=== PATIENT | female | born 1990 | race Caucasian/White ===

== ENCOUNTER 2018-05-16 14:03 | Outpatient (CLI) | payer MEDICAID, OTHER | END 2018-05-16 17:35 | disposition home or self-care (01) | LOC: OBT 14:03 → L-D 14:03 → OBT 17:35 | DX: O36.8130 Decreased fetal movements, third trimester, not applicable or unspecified (principal); Z3A.36 36 weeks gestation of pregnancy | CPT/HCPCS: 76818 ==

== ENCOUNTER 2018-05-30 05:50 | Outpatient (CLI) | payer MEDICAID | END 2018-05-30 08:58 | disposition home or self-care (01) | LOC: OBT 05:50 → L-D 05:50 → OBT 08:58 | DX: O62.9 Abnormality of forces of labor, unspecified (principal); Z3A.39 39 weeks gestation of pregnancy | CPT/HCPCS: 76815 ==

== ENCOUNTER 2018-06-01 15:29 | Outpatient (CLI) | payer MEDICAID | END 2018-06-01 17:00 | disposition home or self-care (01) | LOC: OBT 15:29 → L-D 15:30 → OBT 17:00 | DX: O36.8130 Decreased fetal movements, third trimester, not applicable or unspecified (principal); Z3A.39 39 weeks gestation of pregnancy | CPT/HCPCS: 76818 ==

== ENCOUNTER 2018-06-02 19:08 | Inpatient (IN) | payer MEDICAID ==
[2018-06-02] MEDS ORDERED: LACTATED RINGER'S 1,000 ML IV (19:57)
[2018-06-02] MEDS ORDERED: IBUPROFEN 600 MG TAB PO (20:00)
[2018-06-02] MEDS ORDERED: OXYTOCIN 30 UNITS/LR 500 ML IV ×2 (20:00)
[2018-06-02] MEDS ORDERED: METHYLERGONOVINE 0.2 MG INJ IM (20:00)
[2018-06-02] MEDS ORDERED: LIDOCAINE 1% (MPF) 30 ML INJ INJ (20:00)
[2018-06-02] MEDS ORDERED: MISOPROSTOL 200 MCG TAB PR (20:00)
[2018-06-02] MEDS ORDERED: CARBOPROST 250 MCG INJ IM (20:00)
[2018-06-02 21:09] LABS: AMPHETAMINE/METHAMPHETAMINE Negative (NEGATIVE); BARBITURATES Negative (NEGATIVE); BENZODIAZEPINES Negative (NEGATIVE); CANNABINOIDS Negative (NEGATIVE); COCAINE Negative (NEGATIVE); OPIATES Negative (NEGATIVE)
[2018-06-02] MEDS: LACTATED RINGER'S 1,000 ML IV (21:34)
[2018-06-02] MEDS: AZITHROMYCIN 500MG/NS (PMX) 250 ML IVPB (21:44)
[2018-06-02 22:04] LABS: ADD MAN DIFF? NO
[2018-06-02 22:08] LABS: BASOPHILS % 0.3 % (0.0-2.0); EOSINOPHILS # 0.1 10^3/ul (0.0-0.5); EOSINOPHILS % 0.7 % (0.0-7.0); HEMATOCRIT 33.2 % (37.0-47.0); HEMOGLOBIN 10.3 g/dl (12.0-16.0); LYMPHOCYTES # 1.9 10^3/ul (0.8-2.9); LYMPHOCYTES % 15.5 % (15.0-51.0); MEAN CORPUSCULAR HEMOGLOBIN 24.1 pg (29.0-33.0); MEAN CORPUSCULAR VOLUME 77.8 fl (82.0-101.0); MONOCYTES % 8.4 % (0.0-11.0); NEUTROPHIL # 8.9 10^3/ul (1.6-7.5); NEUTROPHILS % 74.5 % (39.0-77.0); PLATELET COUNT 307 10^3/UL (140-415); RED BLOOD COUNT 4.27 10^6/ul (4.20-5.40); RED CELL DISTRIBUTION WIDTH 16.9 % (11.5-14.5)
[2018-06-02 22:08] LABS: WHITE BLOOD COUNT 11.9 10^3/ul (4.8-10.8)
[2018-06-02 22:29] LABS: INR 0.91; PARTIAL THROMBOPLASTIN TIME 24.7 Sec (23.0-35.0); PROTIME 12.4 Sec (11.9-14.9)
[2018-06-02 22:57] LABS: HEPATITIS B SURFACE ANTIGEN NEGATIVE (NEGATIVE)
[2018-06-03] MEDS: LACTATED RINGER'S 1,000 ML IV ×4 (04:19→21:20)
[2018-06-03] MEDS ORDERED: FENTAnyl 2MCG/ML-ROPIV 0.2% 100 ML (12:43)
[2018-06-03] MEDS ORDERED: NALOXONE (0.4 MG/ML) INJ IV (13:00)
[2018-06-03] MEDS: OXYTOCIN 30 UNITS/LR 500 ML IV ×2 (13:30→23:45)
[2018-06-03 14:39] LABS: RAPID PLASMA REAGIN NONREACTIVE (NR)
[2018-06-03] MEDS: AZITHROMYCIN 250 MG in SOD CHLORIDE 0.9% 250 ML IVPB (20:48)
[2018-06-03] MEDS: ONDANSETRON 4 MG INJ IV (21:05)
[2018-06-03] MEDS: FENTAnyl 2MCG/ML-ROPIV 0.2% 100 ML BAG EPI (21:19)
[2018-06-04] MEDS ORDERED: MAGNESIUM HYDROXIDE 30ML CUP PO
[2018-06-04] MEDS ORDERED: ACETAMINOPHEN 325 MG TAB PO ×2
[2018-06-04] MEDS ORDERED: SENNA/DOCUSATE NA (8.6MG/50MG) TAB PO
[2018-06-04] MEDS ORDERED: ONDANSETRON 4 MG INJ IV
[2018-06-04] MEDS ORDERED: LANOLIN HPA 1 PKT TOP
[2018-06-04] MEDS ORDERED: DIBUCAINE 1% 30 GM OINT TOP
[2018-06-04] MEDS: METHYLERGONOVINE 0.2 MG INJ IM ×2 (00:49→01:14)
[2018-06-04] MEDS: OXYTOCIN 30 UNITS/LR 500 ML IV ×2 (01:11→13:56)
[2018-06-04] MEDS: MISOPROSTOL 200 MCG TAB PR (01:44)
[2018-06-04] MEDS: CARBOPROST 250 MCG INJ IM (03:00)
[2018-06-04] MEDS: BUTORPHANOL 2 MG INJ IV (03:01)
[2018-06-04] MEDS: DIPHENOXYLATE/ATROPINE 5 ML CUP PO ×2 (03:41→09:00)
[2018-06-04 04:04] LABS: ADD MAN DIFF? NO
[2018-06-04 04:06] LABS: BASOPHIL # 0.1 10^3/ul (0.0-0.1); BASOPHILS % 0.3 % (0.0-2.0); EOSINOPHILS % 0.1 % (0.0-7.0); HEMATOCRIT 33.1 % (37.0-47.0); HEMOGLOBIN 10.3 g/dl (12.0-16.0); LYMPHOCYTES # 1.4 10^3/ul (0.8-2.9); LYMPHOCYTES % 8.1 % (15.0-51.0); MEAN CORPUSCULAR HEMOGLOBIN 24.3 pg (29.0-33.0); MEAN CORPUSCULAR HGB CONC 31.1 g/dl (32.0-37.0); MEAN CORPUSCULAR VOLUME 78.1 fl (82.0-101.0); MEAN PLATELET VOLUME 11.5 fl (7.4-10.4); MONOCYTE # 0.8 10^3/ul (0.3-0.9); MONOCYTES % 4.7 % (0.0-11.0); NEUTROPHIL # 14.4 10^3/ul (1.6-7.5); NEUTROPHILS % 86.3 % (39.0-77.0); PLATELET COUNT 287 10^3/UL (140-415); RED BLOOD COUNT 4.24 10^6/ul (4.20-5.40); RED CELL DISTRIBUTION WIDTH 16.6 % (11.5-14.5)
[2018-06-04 04:06] LABS: WHITE BLOOD COUNT 16.7 10^3/ul (4.8-10.8)
[2018-06-04] MEDS: LACTATED RINGER'S 1,000 ML IV* ×4 (06:07→23:57)
[2018-06-04] MEDS: CEFAZOLIN 2 GM/50 ML (PMX) 50 ML IVPB (06:25)
[2018-06-04] MEDS: IBUPROFEN 600 MG TAB PO ×2 (06:30→12:04)
[2018-06-04 08:51] LABS: ADD MAN DIFF? NO
[2018-06-04 09:07] LABS: BASOPHILS % 0.2 % (0.0-2.0); EOSINOPHILS % 0.1 % (0.0-7.0); HEMATOCRIT 31.1 % (37.0-47.0); HEMOGLOBIN 9.7 g/dl (12.0-16.0); LYMPHOCYTES # 1.2 10^3/ul (0.8-2.9); LYMPHOCYTES % 7.2 % (15.0-51.0); MEAN CORPUSCULAR HEMOGLOBIN 24.3 pg (29.0-33.0); MEAN CORPUSCULAR HGB CONC 31.2 g/dl (32.0-37.0); MEAN CORPUSCULAR VOLUME 77.9 fl (82.0-101.0); MEAN PLATELET VOLUME 11.6 fl (7.4-10.4); MONOCYTE # 0.8 10^3/ul (0.3-0.9); PLATELET COUNT 278 10^3/UL (140-415); RED BLOOD COUNT 3.99 10^6/ul (4.20-5.40); RED CELL DISTRIBUTION WIDTH 16.9 % (11.5-14.5)
[2018-06-04 09:07] LABS: WHITE BLOOD COUNT 16.1 10^3/ul (4.8-10.8)
[2018-06-04] MEDS: WITCH HAZEL/GLYCERIN PAD PR (12:05)
[2018-06-04] MEDS: BENZOCAINE 20% 56 ML SPRAY TOP (12:05)
[2018-06-04] MEDS: AZITHROMYCIN 250 MG in SOD CHLORIDE 0.9% 250 ML IVPB (21:14)
[2018-06-05] MEDS: IBUPROFEN 600 MG TAB PO (00:47)
[2018-06-05] MEDS: LACTATED RINGER'S 1,000 ML IV* (07:57)
[2018-06-05 08:38] LABS: ADD MAN DIFF? NO
[2018-06-05 08:53] LABS: BASOPHIL # 0.1 10^3/ul (0.0-0.1); BASOPHILS % 0.5 % (0.0-2.0); EOSINOPHILS # 0.1 10^3/ul (0.0-0.5); EOSINOPHILS % 1.4 % (0.0-7.0); HEMATOCRIT 26.5 % (37.0-47.0); HEMOGLOBIN 8.1 g/dl (12.0-16.0); LYMPHOCYTES # 2.4 10^3/ul (0.8-2.9); LYMPHOCYTES % 23.8 % (15.0-51.0); MEAN CORPUSCULAR HEMOGLOBIN 24.5 pg (29.0-33.0); MEAN CORPUSCULAR HGB CONC 30.6 g/dl (32.0-37.0); MEAN CORPUSCULAR VOLUME 80.3 fl (82.0-101.0); MEAN PLATELET VOLUME 11.9 fl (7.4-10.4); MONOCYTE # 0.9 10^3/ul (0.3-0.9); MONOCYTES % 8.8 % (0.0-11.0); NEUTROPHIL # 6.5 10^3/ul (1.6-7.5); NEUTROPHILS % 64.9 % (39.0-77.0); PLATELET COUNT 258 10^3/UL (140-415); RED CELL DISTRIBUTION WIDTH 16.9 % (11.5-14.5)
== END 2018-06-05 16:20 | disposition home or self-care (01) | DRG 768 ==
LOC: OBT 19:08 → L-D 19:08 → PP1 06-04 08:57 → OBT 19:48 → L-D 19:48
PROC: 10E0XZZ Delivery of Products of Conception, External Approach (ICD-10-PCS; principal; 2018-06-03)
PROC: 0HQ9XZZ Repair Perineum Skin, External Approach (ICD-10-PCS; 2018-06-03)
PROC: 0W3R7ZZ Control Bleeding in Genitourinary Tract, Via Natural or Artificial Opening (ICD-10-PCS; 2018-06-04)
PROC: 0UC97ZZ Extirpation of Matter from Uterus, Via Natural or Artificial Opening (ICD-10-PCS; 2018-06-04)
DX: O70.0 First degree perineal laceration during delivery (principal); O69.81X0 Labor and delivery complicated by cord around neck, without compression, not applicable or unspecified; O72.1 Other immediate postpartum hemorrhage; Z37.0 Single live birth; Z3A.40 40 weeks gestation of pregnancy
CPT/HCPCS: 80307; 85025; 85610; 85730; 86592; 86850; 86900; 86901; 87340; 88307; 99464